=== PATIENT | female | born 1990 | race Caucasian/White ===

== ENCOUNTER 2018-04-24 08:38 | Emergency (ER) | payer BC, OTHER ==
[~2018-04-24] VITALS: Ht 162.6 cm; Wt 72.7 kg
[2018-04-24 08:44] VITALS: BP 141/96
[2018-04-24 09:45] LABS: BASOPHILS % (AUTO) 0.3 % (0.0-2.0); EOSINOPHILS % (AUTO) 1.7 % (1.0-6.0); HEMATOCRIT 37.8 % (36-46); HEMOGLOBIN 12.9 g/dL (12.0-16.0); LYMPHOCYTES # (AUTO) 1.3 K/uL (1.0-4.8); LYMPHOCYTES % (AUTO) 17.7 % (22.0-44.0); MEAN CORPUSCULAR HEMOGLOBIN 29.6 pg (26.0-34.0); MEAN CORPUSCULAR HGB CONC 34.2 G/dL (31.0-37.0); MEAN CORPUSCULAR VOLUME 87 fL (80-100); MONOCYTES # (AUTO) 0.5 K/uL (0.1-1.0); MONOCYTES % (AUTO) 6.3 % (2.0-9.0); NEUTROPHILS # (AUTO) 5.4 K/uL (1.8-7.7); PLATELET COUNT (AUTO) 290 K/uL (150-450); RED BLOOD CELL COUNT(AUTO) 4.36 MIL/uL (4.00-5.20); RED CELL DISTRIBUTION WIDTH 12.8 % (11.5-14.5)
[2018-04-24] MEDS ORDERED: KETOROLAC TROMETHAMINE 30 MG/ML VIAL IVP ONE (09:45)
[2018-04-24 09:48] LABS: BILIRUBIN,URINE NEGATIVE (NEGATIVE); GLUCOSE, URINE (UA) NEGATIVE (NEGATIVE); KETONES,URINE NEGATIVE (NEGATIVE); LEUKOCYTE ESTERASE ,URINE NEGATIVE (NEGATIVE); NITRATE,URINE NEGATIVE (NEGATIVE); OCCULT BLOOD,URINE NEGATIVE (NEGATIVE); PROTEIN,URINE NEGATIVE (NEGATIVE); UROBILINOGEN,URINE 0.2 mg/dL (<=1.0)
[2018-04-24 09:50] LABS: APPEARANCE,URINE CLEAR (CLEAR)
[2018-04-24 09:51] LABS: BACTERIA,URINE None Seen /HPF (None Seen); RBC,URINE None Seen /HPF (0-2); SQUAMOUS EPITHELIAL CELL,UR Many /LPF (None Seen); WBC,URINE None Seen /HPF (0-5)
[2018-04-24 10:01] LABS: ANION GAP 7 mmol/L (8-16); CALCIUM, TOTAL 8.7 mg/dL (8.8-10.5); CARBON DIOXIDE 30 mmol/L (22-29); CHLORIDE 103 mmol/L (98-107); CREATININE 0.62 mg/dL (0.60-1.30); GLOMERULAR FILTR. RATE CALC > 60 mL/min (>60); GLUCOSE,RANDOM 87 mg/dL (70-110); POTASSIUM 3.9 mmol/L (3.5-5.1); SODIUM SERUM 140 mmol/L (136-145); UREA NITROGEN, BLOOD 13 mg/dL (7-18)
[2018-04-24 10:07] LABS: ALANINE AMINOTRANSFERASE 18 U/L (12-78); ALBUMIN 4.2 g/dL (3.4-5.0); ALKALINE PHOSPHATASE 62 U/L (46-116); ASPARTATE AMINOTRANSFERASE 16 U/L (15-37); BILIRUBIN,TOTAL 0.8 mg/dL (0.1-1.0); LIPASE 188 U/L (73-393); TOTAL PROTEIN, SERUM 7.7 g/dL (6.4-8.2)
== END 2018-04-24 11:39 | disposition home or self-care (01) ==
LOC: EMS 08:39
DX: R10.32 Left lower quadrant pain (principal)
CPT/HCPCS: 36415; 76856; 80053; 81001; 83690; 84703; 85025; 96374; 99284; J1885

== ENCOUNTER → 2018-09-20 | Outpatient (CLI) | payer OTHER | END | disposition home or self-care (01) | LOC: LABPV 07:42 | PROVIDERS: ATTEND Internal Medicine | DX: Z01.84 Encounter for antibody response examination (principal) | CPT/HCPCS: 86787 ==

== ENCOUNTER → 2018-10-19 | Outpatient (CLI) | payer OTHER | END | disposition home or self-care (01) | LOC: LABPV 10:56 | PROVIDERS: ATTEND Internal Medicine | DX: Z11.59 Encounter for screening for other viral diseases (principal) | CPT/HCPCS: 87340 ==

== ENCOUNTER 2020-11-26 19:30 | Emergency (ER) | payer OTHER ==
[~2020-11-26] VITALS: Ht 162.6 cm; Wt 55.5 kg
[2020-11-26] MEDS ORDERED: BACITRACIN 0.9 GM PACKET OINTMENT TP ONE (19:45)
[2020-11-26] MEDS ORDERED: LIDOCAINE 1%/EPI 1:200,000/PF 10 ML VIAL SQ ONE (19:45)
[2020-11-26 20:00] VITALS: BP 119/68
== END 2020-11-26 20:20 | disposition home or self-care (01) ==
LOC: EMS 19:30
DX: S61.411A Laceration without foreign body of right hand, initial encounter (principal); K21.9 Gastro-esophageal reflux disease without esophagitis; W26.8XXA Contact with other sharp object(s), not elsewhere classified, initial encounter; Y93.89 Activity, other specified; Y92.89 Other specified places as the place of occurrence of the external cause; Y99.8 Other external cause status
CPT/HCPCS: 12002; 99282; J3490

== ENCOUNTER 2021-11-14 12:00 | Emergency (ER) | payer MEDICAID, OTHER ==
[~2021-11-14] VITALS: Ht 162.6 cm; Wt 58.2 kg
[2021-11-14] MEDS ORDERED: CEPHALEXIN MONOHYDRATE 500 MG CAPSULE PO ONE (12:15)
[2021-11-14] MEDS ORDERED: KETOROLAC TROMETHAMINE 60 MG/2 ML VIAL IM ONE (12:15)
[2021-11-14] MEDS ORDERED: LIDOCAINE 1% 10 ML VIAL SQ ONE (12:15)
[2021-11-14] MEDS ORDERED: LIDOCAINE/PRILOCAINE 2.5% 30 GM CREAM TP ONE (12:15)
[2021-11-14] MEDS ORDERED: DOXYCYCLINE HYCLATE 100 MG TABLET PO ONE (12:15)
[2021-11-14 13:40] VITALS: BP 118/70
== END 2021-11-14 13:43 | disposition home or self-care (01) ==
LOC: EMS 12:01
DX: L73.2 Hidradenitis suppurativa (principal); K21.9 Gastro-esophageal reflux disease without esophagitis
CPT/HCPCS: 99283; 10060; 96372; J1885; J3490